=== PATIENT | male | born 2000 | race Hispanic/Latino ===

== ENCOUNTER 2019-04-11 16:55 | Emergency (ER) | payer SELFPAY ==
[2019-04-11 16:58] VITALS: BP 157/87; PULSE 87; RESP 17; TEMP 36.9; O2SAT 98
--- NOTE | 2019-04-11 17:04 | DI.RAD.S_ITS ---
PROCEDURE: XR CHEST 2V INDICATIONS: shortness of breath TECHNIQUE: 2 views of the chest were acquired. COMPARISON: None. FINDINGS: Surgical changes and devices: None. Lungs and pleura: Lungs are clear. No pleural effusions or pneumothorax. Mediastinum: Mediastinal contours are normal. Heart size is normal. Bones and chest wall: No suspicious bony abnormalities. Soft tissues appear unremarkable. IMPRESSION: 1. No acute cardiopulmonary disease. Dictated by: José Bernstein M.D. on 04/11/2019 at 17:15 Approved by: José Bernstein M.D. on 04/11/2019 at 17:15
[2019-04-11] MEDS: SODIUM CHLORIDE 0.9% 1,000 ML 1000 ML IV (18:10)
[2019-04-11] MEDS: ONDANSETRON 4 MG/2 ML INJ IV (18:10)
[2019-04-11 18:13] LABS: Add Manual Diff / Slide Review NO; Basophils Absolute Auto 0 /uL (0-100); Basophils Percent Auto 0.5 % (0-2); Eosinophils Absolute Auto 100 /uL (0-450); Eosinophils Percent Auto 1.6 % (2-4); Hematocrit 43.9 % (41-53); Hemoglobin 15.2 g/dL (13.5-17.5); Lymphocytes Absolute Auto 1200 /uL (1100-4500); Lymphocytes Percent Auto 23.4 % (25-40); Mean Corpuscular HGB Conc 34.8 % (30-36); Mean Corpuscular Hemoglobin 29.1 PG (26-34); Mean Corpuscular Volume 83.8 fL (80-100); Monocytes Absolute Auto 700 /uL (0-900); Monocytes Percent Auto 13.5 % (3-14); Neutrophils Absolute Auto 3200 /uL (1500-7000); Platelet Count 160 X10^3/uL (150-400); Red Blood Cell Count 5.24 X10^6/uL (4.5-5.9); White Blood Cell Count 5.3 X10^3/uL (4.5-11.0)
[2019-04-11 18:26] LABS: Alanine Aminotransferase 64 IU/L (<50); Albumin 4.4 g/dL (3.5-5.0); Albumin Globulin Ratio 1.5 (1.0-2.8); Alkaline Phosphatase 88 U/L (38-126); Amylase 60 U/L (30-110); Aspartate Aminotransferase 53 IU/L (17-59); Bilirubin Total 0.6 mg/dL (0.2-1.3); Blood Urea Nitrogen 12 mg/dL (9-20); Calcium 8.8 mg/dL (8.4-10.2); Carbon Dioxide 25 mmol/L (22-32); Chloride 106 mmol/L (98-107); Estimated Glomerular Filt Rate > 60.0 mL/min (>60); Glucose 106 mg/dL (70-100); HEMOLYSIS 27 (0-50); Lipase 91 U/L (23-300); Potassium 3.6 mmol/L (3.4-5.1); Sodium 143 mmol/L (137-145); Total Protein 7.4 g/dL (6.3-8.2)
[2019-04-11] MEDS: AMOXICILLIN 250 MG CAPSULE 500 MG PO (19:17)
--- NOTE | 2019-04-11 19:18 | ED.URI ---
HPI - URI/Sore Throat <NOA Nieto - Last Filed: 04/11/19 20:47> General Chief Complaint: Upper Respiratory Symptoms Stated Complaint: cold for 2 weeks Time Seen by Provider: 04/11/19 17:11 Source: patient Mode of arrival: Ambulatory Limitations: no limitations History of Present Illness HPI Narrative: The patient is a 18-year-old male who presents with his family for chief complaint of cold symptoms off and on for the past few weeks. He states he has a sore throat, cough, congestion, abdominal pain at times, has vomited 3 times a day for the past week. He has not followed up with primary care provider. He denies any dysuria urgency or frequency. He complains of diarrhea last week, but none currently. Last vomit was 1 hour prior to arrival. He denies any chest pain or shortness of breath. Related Data Previous Rx's Medication Instructions Recorded amoxicillin 500 mg PO BID #20 tab 04/11/19 Allergies Allergy/AdvReac Type Severity Reaction Status Date / Time No Known Allergies Allergy Uncoded 04/11/19 17:04 Review of Systems <NOA Nieto - Last Filed: 04/11/19 20:47> Review of Systems Narrative: GENERAL: See HPI HEENT: See HPI RESPIRATORY: Denies dyspnea, cough, wheezing, hemoptysis, sputum. CARDIOVASCULAR: Denies chest pain, palpitations, orthopnea, edema, GASTROINTESTINAL: See HPI : Denies dysuria, frequency, incontinence, hematuria, urinary retention. MUSCULOSKELETAL: denies weakness, joint pain, or bony pain SKIN: Denies rash, skin lesions, or other NEUROLOGIC: Denies weakness, headache, numbness, change in speech, confusion, seizures, incoordination. PSYCHIATRIC: No concerning psychosocial issues. 12 point review of systems is negative except for those stated above Patient History <NOA Nieto - Last Filed: 04/11/19 20:47> tobacco type: e-cigarettes and vaping alcohol intake frequency: holidays/special occasions only Exam <NOA Nieto - Last Filed: 04/11/19 20:47> Narrative Exam Narrative: GENERAL: This is a well-nourished, well-developed patient, in no acute distress HEAD: Atraumatic. Normocephalic. No temporal or scalp tenderness. EYES: Pupils equal round and reactive. Extraocular motions intact. No scleral icterus. No injection or drainage. ENT: Nose without bleeding, purulent drainage or septal hematoma. Throat without erythema, tonsillar hypertrophy or exudate. Uvula midline. Airway patent. Bilateral TMs pearly [place] NECK: Trachea midline. No JVD or lymphadenopathy. Supple, nontender, no meningeal signs. CARDIOVASCULAR: Regular rate and rhythm without murmurs, gallops, or rubs. RESPIRATORY: Clear to auscultation. Breath sounds equal bilaterally. No wheezes, rales, or rhonchi. No cough. No increased respiratory effort. No accessory muscle use. GASTROINTESTINAL: Abdomen soft, diffusely tender but soft to palpation, nondistended. No hepato-splenomegaly, or palpable masses. No guarding. Active bowel sounds all 4 quadrants EXTREMITIES: No clubbing, cyanosis, or edema. No joint tenderness, effusion, or edema noted. BACK: Nontender without deformity or crepitance. No flank tenderness. NEURO: AOx3. SKIN: No rash or erythema on visible skin Initial Vital Signs Initial Vital Signs: Vital Signs Temperature 98.5 F 04/11/19 16:58 Pulse Rate 87 04/11/19 16:58 Respiratory Rate 17 04/11/19 16:58 Blood Pressure 157/87 H 04/11/19 16:58 Pulse Oximetry 98 04/11/19 16:58 <Linnea Pereira DO - Last Filed: 04/12/19 04:23> Initial Vital Signs Initial Vital Signs: Vital Signs Temperature 98.5 F 04/11/19 16:58 Pulse Rate 87 04/11/19 16:58 Respiratory Rate 17 04/11/19 16:58 Blood Pressure 157/87 H 04/11/19 16:58 Pulse Oximetry 98 04/11/19 16:58 Course <NOA Nieto - Last Filed: 04/11/19 20:47> Orders Ordered: Discontinued Medications Amoxicillin (Trimox) 500 mg PO NOW ONE Stop: 04/11/19 19:05 Last Admin: 04/11/19 19:17 Dose: 500 mg Documented by: PRINCE Sodium Chloride (Normal Saline 0.9%) 1,000 mls @ 1,000 mls/hr IV BOLUS ONE Stop: 04/11/19 18:29 Last Infusion: 04/11/19 19:00 Dose: 0 mls/hr Documented by: Admin: 04/11/19 18:10 Dose: 1,000 mls/hr Documented by: PRINCE Ondansetron HCl (Zofran) 4 mg IV NOW ONE Stop: 04/11/19 17:31 Last Admin: 04/11/19 18:10 Dose: 4 mg Documented by: PRINCE Vital Signs Vital signs: Vital Signs - 8 hr 04/11/19 16:58 04/11/19 19:19 Temperature 98.5 F Pulse Rate 87 76 Respiratory Rate 17 18 Blood Pressure 157/87 H Blood Pressure [Left Arm] 103/53 L Pulse Oximetry 98 98 <Linnea Pereira DO - Last Filed: 04/12/19 04:23> Orders Ordered: Discontinued Medications Amoxicillin (Trimox) 500 mg PO NOW ONE Stop: 04/11/19 19:05 Last Admin: 04/11/19 19:17 Dose: 500 mg Documented by: PRINCE Sodium Chloride (Normal Saline 0.9%) 1,000 mls @ 1,000 mls/hr IV BOLUS ONE Stop: 04/11/19 18:29 Last Infusion: 04/11/19 19:00 Dose: 0 mls/hr Documented by: Admin: 04/11/19 18:10 Dose: 1,000 mls/hr Documented by: PRINCE Ondansetron HCl (Zofran) 4 mg IV NOW ONE Stop: 04/11/19 17:31 Last Admin: 04/11/19 18:10 Dose: 4 mg Documented by: PRINCE Vital Signs Vital signs: Vital Signs - 8 hr 04/11/19 16:58 04/11/19 19:19 Temperature 98.5 F Pulse Rate 87 76 Respiratory Rate 17 18 Blood Pressure 157/87 H Blood Pressure [Left Arm] 103/53 L Pulse Oximetry 98 98 MDM - URI/Sore Throat <NOA Nieto - Last Filed: 04/11/19 20:47> Lab Data Result diagrams: 04/11/19 18:05 04/11/19 18:05 Labs: Lab Results 04/11/19 04/11/19 Range/Units 18:05 18:05 WBC 5.3 (4.5-11.0) X10^3/uL RBC 5.24 (4.5-5.9) X10^6/uL Hgb 15.2 (13.5-17.5) g/dL Hct 43.9 (41-53) % MCV 83.8 (80-100) fL MCH 29.1 (26-34) PG MCHC 34.8 (30-36) % RDW 13.0 (11.6-14.8) % Plt Count 160 (150-400) X10^3/uL Neut % (Auto) 61.0 (50-75) % Lymph % (Auto) 23.4 L (25-40) % Gooding % (Auto) 13.5 (3-14) % Eos % (Auto) 1.6 L (2-4) % Baso % (Auto) 0.5 (0-2) % Neut # (Auto) 3200 (4006-1268) /uL Lymph # (Auto) 1200 (5162-0870) /uL Gooding # (Auto) 700 (0-900) /uL Eos # (Auto) 100 (0-450) /uL Baso # (Auto) 0 (0-100) /uL Sodium 143 (137-145) mmol/L Potassium 3.6 (3.4-5.1) mmol/L Chloride 106 (98-107) mmol/L Carbon Dioxide 25 (22-32) mmol/L BUN 12 (9-20) mg/dL Creatinine 0.60 L (0.66-1.25) mg/dL Estimated GFR > 60.0 (>60) mL/min BUN/Creatinine Ratio 20.0 (6-22) Glucose 106 H (70-100) mg/dL Calcium 8.8 (8.4-10.2) mg/dL Total Bilirubin 0.6 (0.2-1.3) mg/dL AST 53 (17-59) IU/L ALT 64 H (<50) IU/L Alkaline Phosphatase 88 (38-126) U/L Total Protein 7.4 (6.3-8.2) g/dL Albumin 4.4 (3.5-5.0) g/dL Globulin 3.0 (1.7-4.1) g/dL Albumin/Globulin Ratio 1.5 (1.0-2.8) Amylase 60 (30-110) U/L Lipase 91 (23-300) U/L Point of Care Testing Rapid Strep A Positive Imaging Data Chest x-ray: Radiologist's impression: [address] [address] XRay Report Signed Patient: Jalil Penn [facility]#: [id number] : 2000Acct:[id number] Age/Sex: 18 / MDate of Service: 04/11/19 Loc: ED Accession Number: [id number] Procedure: XR chest 2V Ordering Provider: Toby Killian MD PROCEDURE: XR CHEST 2V INDICATIONS: shortness of breath TECHNIQUE: 2 views of the chest were acquired. COMPARISON: None. FINDINGS: Surgical changes and devices: None. Lungs and pleura: Lungs are clear. No pleural effusions or pneumothorax. Mediastinum: Mediastinal contours are normal. Heart size is normal. Bones and chest wall: No suspicious bony abnormalities. Soft tissues appear unremarkable. IMPRESSION: 1. No acute cardiopulmonary disease. Dictated by: José Bernstein M.D. on 04/11/2019 at 17:15 Approved by: José Bernstein M.D. on 04/11/2019 at 17:15 [facility] Narrative Medical decision making narrative: The patient is a 18-year-old male who presents with a chief complaint of continued cold symptoms for the past several weeks. He states he is vomiting 2 to 3 times a day. He complains of sore throat. He is positive for strep, so I initiated treatment with amoxicillin in the emergency department. I did do basic lab working the oven fluids given his vomiting complaints, his lab work came back grossly normal. I discussed at length that he needs to follow up with primary care provider, come back to the emergency department for any acute concerns such as inability keep down fluids. He has no questions or concerns upon discharge and states understanding of return precautions as well as follow-up care. <Linnea Pereira DO - Last Filed: 04/12/19 04:23> Lab Data Labs: Lab Results 04/11/19 04/11/19 Range/Units 18:05 18:05 WBC 5.3 (4.5-11.0) X10^3/uL RBC 5.24 (4.5-5.9) X10^6/uL Hgb 15.2 (13.5-17.5) g/dL Hct 43.9 (41-53) % MCV 83.8 (80-100) fL MCH 29.1 (26-34) PG MCHC 34.8 (30-36) % RDW 13.0 (11.6-14.8) % Plt Count 160 (150-400) X10^3/uL Neut % (Auto) 61.0 (50-75) % Lymph % (Auto) 23.4 L (25-40) % Gooding % (Auto) 13.5 (3-14) % Eos % (Auto) 1.6 L (2-4) % Baso % (Auto) 0.5 (0-2) % Neut # (Auto) 3200 (5824-8973) /uL Lymph # (Auto) 1200 (3767-9142) /uL Gooding # (Auto) 700 (0-900) /uL Eos # (Auto) 100 (0-450) /uL Baso # (Auto) 0 (0-100) /uL Sodium 143 (137-145) mmol/L Potassium 3.6 (3.4-5.1) mmol/L Chloride 106 (98-107) mmol/L Carbon Dioxide 25 (22-32) mmol/L BUN 12 (9-20) mg/dL Creatinine 0.60 L (0.66-1.25) mg/dL Estimated GFR > 60.0 (>60) mL/min BUN/Creatinine Ratio 20.0 (6-22) Glucose 106 H (70-100) mg/dL Calcium 8.8 (8.4-10.2) mg/dL Total Bilirubin 0.6 (0.2-1.3) mg/dL AST 53 (17-59) IU/L ALT 64 H (<50) IU/L Alkaline Phosphatase 88 (38-126) U/L Total Protein 7.4 (6.3-8.2) g/dL Albumin 4.4 (3.5-5.0) g/dL Globulin 3.0 (1.7-4.1) g/dL Albumin/Globulin Ratio 1.5 (1.0-2.8) Amylase 60 (30-110) U/L Lipase 91 (23-300) U/L Point of Care Testing Rapid Strep A Positive Discharge Plan Departure Patient Disposition: Home Clinical Impression: Strep throat Discharge Date/Time: 04/11/19 19:28 Instructions: DI for Strep Throat Activity Restrictions/Additional Instructions: We found that you have strep throat today. I've sent a prescription for amoxicillin to [facility] in [place]. Please use [id number] medications as needed and able. Please follow-up with primary care provider. Please come back to the emergency department for any acute concerns Prescriptions: New amoxicillin 500 mg tablet 500 mg PO BID Qty: 20 RF: 0 Referrals: [facility] [Outside]
[2019-04-11 19:19] VITALS: BP 103/53; PULSE 76; RESP 18; O2SAT 98
== END 2019-04-11 19:28 | disposition home or self-care (01) ==
PROVIDERS: Emergency Provider Nurse Practitioner Family
DX: J02.0 Streptococcal pharyngitis (principal); R06.02 Shortness of breath; R11.10 Vomiting, unspecified
CPT/HCPCS: 36415; 71046; 80053; 82150; 83690; 85025; 87880; 96361; 96374; 99283; 99284; J2405

== ENCOUNTER 2019-10-19 07:20 | Emergency (ER) | payer OTHER, MEDICAID, SELFPAY ==
[2019-10-19 07:25] VITALS: BP 134/88; PULSE 119; RESP 17; TEMP 37.8; O2SAT 97; BMI 31.4
--- NOTE | 2019-10-19 07:35 | DI.RAD.S_ITS ---
PROCEDURE: XR CHEST 1V INDICATIONS: Flu like symptoms TECHNIQUE: One view of the chest was acquired. COMPARISON: [facility], CR, XR CHEST 2V, 04/11/2019, 17:00. FINDINGS: Surgical changes and devices: None. Lungs and pleura: Lungs are clear. No pleural effusions or pneumothorax. Mediastinum: Mediastinal contours appear normal. Heart size is normal. Bones and chest wall: No suspicious bony lesions. Overlying soft tissues appear unremarkable. IMPRESSION: No acute disease Dictated by: Hoang Gibbs M.D. on 10/19/2019 at 8:43 Approved by: Hoang Gibbs M.D. on 10/19/2019 at 8:44
[2019-10-19 07:45] VITALS: TEMP 37.8
[2019-10-19] MEDS: ACETAMINOPHEN 325 MG TABLET 975 MG PO (07:45)
--- NOTE | 2019-10-19 07:56 | ED_ITS ---
HPI - URI/Sore Throat General Chief Complaint: Upper Respiratory Symptoms Stated Complaint: fever since last night/sore throat cough Time Seen by Provider: 10/19/19 07:27 Source: patient Mode of arrival: Ambulatory Limitations: no limitations History of Present Illness HPI Narrative: CC: Fever, productive cough, sore throat, mother tested positive for [place] it last night HPI: The patient is a 19-year-old male who presents to the emergency department with a fever that started last night associated with diffuse body aches, headache, cough productive of green sputum without wheezing, mild shortness of breath at night with a sore throat. The patient's mother was seen in the emergency department last night and tested positive for Covid 19. He has been tachycardic with racing of his heart and dizziness. He has complained of fever chills and sweats. He denies a history of diabetes mellitus hypertension asthma congenital heart disease and heart murmur. The patient does not smoke cigarettes chew tobacco dr ink alcohol but periodically smokes marijuana. 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 Related Data Previous Rx's Medication Instructions Recorded amoxicillin 500 mg PO TID #30 cap 10/19/19 ibuprofen 600 mg tablet 600 mg PO QID PRN #20 tab 10/23/19 Allergies Allergy/AdvReac Type Severity Reaction Status Date / Time No Known Drug Allergies Allergy Verified 10/19/19 07:36 Review of Systems Review of Systems Narrative: REVIEW OF SYSTEMS: CONSTITUTIONAL: The patient complains of of fever with chills and sweats. His maximum temperature has been to 100.1. NEUROLOGICAL: He complains of a generalized headache that is 7 to 6/10 in intensity. He denies any numbness tingling paresthesias anesthesia is paresis or paralysis. EENT: He has had a sore throat with mild nasal congestion no dysphasia no change in vision. CARDIO-PULMONARY: He complains of shortness of breath at nighttime primarily none with exertion has had a productive cough. Sputum has been green without hemoptysis. He denies any wheezing or chest pain. He has had dizziness with palpitations and racing of his heart periodically. GASTROINTESTINAL: He denies any abdominal pain or cramps but has had nausea without diarrhea or melena. GENITAL URINARY: He denies any urinary symptoms. MUSCULOSKELETAL/ RHEUMATOLOGICAL: The patient has upper thoracic back ache and diffuse body aches. DERMATOLOGICAL: He denies any rash bruising Patient History Social History Smoking Status: Former smoker Smoking Status: Former smoker tobacco type: e-cigarettes and vaping alcohol intake frequency: holidays/special occasions only Substance Use Type: marijuana Exam Narrative Exam Narrative: PHYSICAL EXAM: CONSTITUTIONAL: Awake, Alert, Oriented, Coherent, Cooperative in NAD. Does not appear toxic or ill. HEAD: AT/NC EENT: PERRL, FROM of eyes, no discharge, no conjunctivitis. NOSE:No epistaxis or nasal drainage MOUTH:Oral mucosa is moist and pink, posterior pharynx is mildly erythematous without any exudate. NECK: Supple, no obvious JVD, Trachea is midline without stridor, no palpable LN. SPINE: Palpationof the cervical, Lumbar or Sacral spine reveals no gross deformity or tenderness. The patient's mid upper thoracic spine is tender to palpation. No CVA tenderness. THORAX: No deformity, retractions. Chest wall is tender to palpation along the right costal sternal margin and lower ribs as well as if he sternum which is reproducible. LUNGS: Clear, symmetrical breath sounds without respiratory distress. HEART: Tachycardic regular rhythm no murmur. ABDOMEN: Soft, non-tender, without guarding, rebound, rigidity or palpable mass. EXTREMITIES: No edema, deformity, tenderness or cyanosis. SKIN: No rash, bruising, petechiae or purpura. NEURO: Awake, alert, oriented, conversive, cranial nerves II-XII are symmetrical , moves all 4 extremities and is ambulatory. MENTAL HEALTH: Does not appear anxious or depressed. Initial Vital Signs Initial Vital Signs: Vital Signs Temperature 100.0 F H 10/19/19 07:25 Pulse Rate 119 H 10/19/19 07:25 Respiratory Rate 17 10/19/19 07:25 Blood Pressure 134/88 10/19/19 07:25 Pulse Oximetry 97 10/19/19 07:25 Course Orders Ordered: Discontinued Medications Acetaminophen (Tylenol) 975 mg PO NOW ONE Stop: 10/19/19 07:35 Last Admin: 10/19/19 07:45 Dose: 975 mg Documented by: CALDERON Amoxicillin (Trimox) 500 mg PO NOW ONE Stop: 10/19/19 09:03 Last Admin: 10/19/19 09:12 Dose: 500 mg Documented by: GUIDO Vital Signs Vital signs: Vital Signs - 8 hr 10/19/19 07:25 10/19/19 07:45 Temperature 100.0 F H 100.0 F H Pulse Rate 119 H Respiratory Rate 17 Blood Pressure 134/88 Pulse Oximetry 97 MDM - URI/Sore Throat Lab Data Labs: Lab Results 10/19/19 10/19/19 Range/Units 07:47 07:47 COVID-19 PCR Detected A (Not Detected) Influenza A (RT-PCR) Flu a negative (NEGATIVE) Influenza B (RT-PCR) Flu b negative (NEGATIVE) Group A Strep (PCR) Positive H Discharge Plan Departure Patient Disposition: Home Clinical Impression: Productive cough, Acute streptococcal pharyngitis Fever Qualifiers: Fever type: unspecified Qualified Code(s): R50.9 - Fever, unspecified Discharge Date/Time: 10/19/19 09:57 Instructions: DI for Strep Throat, DI for Acute Bronchitis, DI for COVID-19 (Suspected or Confirmed ) Activity Restrictions/Additional Instructions: 1. Since you have been exposed to COVID-19 from a family member, with your mother being positive and you having mild shortness of breath cough pharyngitis even though you have strep throat, you must be presumed positive until your Covid Test returns negative. You must self quarantine yourself for the next 14 days until your test returns and is negative. 2. Take the amoxicillin 500 mg 3 times a day until gone for your strep pharyngitis. 3. For pain and discomfort body aches you can take Tylenol/acetaminophen 500 mg every 4 hours or ibuprofen 600 mg every 6 hours. 4. You must drink between 2 and 3 L of fluid per day to keep yourself well hydrated. 5. If you develop worsening symptoms shortness of breath or chest pain you need to return to the emergency department or follow-up with your primary care physician Prescriptions: New amoxicillin 500 mg capsule 500 mg PO TID Qty: 30 RF: 0 No Action ibuprofen 600 mg tablet 600 mg PO QID PRN (Reason: fever or pain) Qty: 20 RF: 0 Stand Alone Forms: Work Release Note
[2019-10-19 08:00] VITALS: PULSE 93; O2SAT 98
--- NOTE | 2019-10-19 08:01 | PC.NURSE ---
Patient was given reading material for Covid-19 by his request.
[2019-10-19 08:14] LABS: Strep Grp A by PCR Rapid Positive
[2019-10-19 08:35] LABS: Influenza A - CEPHEID Flu A NEGATIVE (NEGATIVE); Influenza B - CEPHEID Flu B NEGATIVE (NEGATIVE)
[2019-10-19 09:00] VITALS: TEMP 37.4
[2019-10-19 09:01] VITALS: PULSE 77; RESP 17; TEMP 37.4; O2SAT 99
[2019-10-19] MEDS: AMOXICILLIN 250 MG CAPSULE 500 MG PO (09:12)
[2019-10-19 09:54] VITALS: BP 131/58; PULSE 75; RESP 14; O2SAT 98
[2019-10-21 13:36] LABS: COVID19 Sendout Detected (Not Detected)
== END 2019-10-19 09:57 | disposition home or self-care (01) ==
PROVIDERS: Emergency Provider Emergency Medicine
DX: U07.1 COVID-19 (principal); J02.0 Streptococcal pharyngitis; R05 Cough; R50.9 Fever, unspecified; R00.0 Tachycardia, unspecified
CPT/HCPCS: 71045; 87502; 87635; 87651; 99283; 99284

== ENCOUNTER 2019-10-24 17:00 | Emergency (ER) | payer OTHER, MEDICAID, SELFPAY ==
[2019-10-24 17:21] VITALS: BP 134/60; PULSE 99; RESP 20; TEMP 38.1; O2SAT 95; BMI 34.3
--- NOTE | 2019-10-24 17:29 | DI.CT.S_ITS ---
PROCEDURE: CT ABDOMEN PELVIS W CON INDICATIONS: LLQ and RLQ pain, fever TECHNIQUE: After the administration of intravenous contrast, 5 mm thick sections acquired from the diaphragm to the symphysis. 5 mm coronal and sagittal reformats were acquired. For radiation dose reduction, the following was used: automated exposure control, adjustment of mA and/or kV according to patient size. COMPARISON: None. FINDINGS: Image quality: Excellent. ABDOMEN: Lung bases: Small rounded infiltrates in posterior aspect of bilateral lower lobes are seen more prominent on the right side. Heart size is normal. Solid organs: Liver is normal in size and enhancement. Hepatic steatosis is seen. Gallbladder is within normal limits. Biliary system is non dilated. Pancreas enhances normally. Spleen is normal in size and enhancement. No adrenal nodules. Kidneys demonstrate normal size and enhancement, without hydronephrosis. Peritoneum and bowel: There is no bowel obstruction. Appendix is visualized and is within normal limits. Mild wall thickening involving the ascending colon transverse and descending colon is noted. No significant pericolonic fat stranding. No free fluid or free air. Nodes and vessels: No retroperitoneal or mesenteric adenopathy by size criteria. Aorta and inferior vena cava are normal in size. Miscellaneous: No ventral hernias. PELVIS: Genitourinary: Bladder wall thickness is normal. Miscellaneous: No inguinal hernias or adenopathy. Bones: No suspicious bony lesions. No vertebral body compression fractures. IMPRESSION: 1. Mild colonic wall thickening concerning for infectious or inflammatory colitis. No bowel obstruction. Normal appendix. No free fluid or free air. 2. Hepatic steatosis. 3. Ill-defined rounded airspace opacities in posterior aspect of bilateral lower lobes concerning for bilateral lower lobe infiltrates more prominent on the right side. Dictated by: Elliott Espinosa M.D. on 10/24/2019 at 18:33 Approved by: Elliott Espinosa M.D. on 10/24/2019 at 18:35
--- NOTE | 2019-10-24 17:54 | ED.ABDPAIN ---
HPI - Abdominal Pain <CARA Moore - Last Filed: 10/24/19 21:01> General Chief Complaint: Abdominal Pain Stated Complaint: COVID Postive, pain lower back, hard to walk Time Seen by Provider: 10/24/19 17:16 Source: patient Mode of arrival: Ambulatory Limitations: no limitations History of Present Illness HPI narrative: 19-year-old male who recently test positive for COVID-19 on 10/19/2019, presents to the emergency department for right lower quadrant and left lower quadrant pain starting the past 24 hours. Patient also complains of mid back pain, denies any dysuria or flank pain. Patient also reports having a dry cough which has improved over the past few days. Patient states he has had a fever for the past few days but has been positive for COVID-19 and strep A. Patient has been taking ibuprofen and amoxicillin. Patient denies any nausea, vomiting, diarrhea, chest pain, worsening shortness of breath, dizziness, headache, or any other concerns. Related Data Previous Rx's Medication Instructions Recorded amoxicillin 500 mg PO TID #30 cap 10/19/19 ibuprofen 600 mg tablet 600 mg PO QID PRN #20 tab 10/23/19 Allergies Allergy/AdvReac Type Severity Reaction Status Date / Time No Known Drug Allergies Allergy Verified 10/19/19 07:36 Review of Systems <CARA Moore - Last Filed: 10/24/19 21:01> Review of Systems Narrative: REVIEW OF SYSTEMS: GENERAL: Denies fever, chills. HENT: No head trauma. CARDIOVASCULAR: No chest pain. RESPIRATORY: Reports dry cough, see HPI. GASTROINTESTINAL: Complains of abdominal pain, see HPI GENITOURINARY: No flank pain or dysuria. MUSCULOSKELETAL: No pain, weakness, or trauma. INTEGUMENTARY: No rash. NEURO: No headaches. PSYCH: No behavior or mood changes. Patient History <CARA Moore - Last Filed: 10/24/19 21:01> Medical History No significant medical problems (Acute) Social History Smoking Status: Former smoker Smoking Status: Former smoker tobacco type: e-cigarettes and vaping alcohol intake frequency: holidays/special occasions only Substance Use Type: marijuana Exam <CARA Moore - Last Filed: 10/24/19 21:01> Initial Vital Signs Initial Vital Signs: Vital Signs Temperature 100.6 F H 10/24/19 17:21 Pulse Rate 99 H 10/24/19 17:21 Respiratory Rate 20 10/24/19 17:21 Blood Pressure 134/60 10/24/19 17:21 Pulse Oximetry 95 10/24/19 17:21 PHYSICAL EXAMINATION: GENERAL: Well groomed, alert, and cooperative. Answers questions promptly and appropriately. Vital signs noted. HENT: Normocephalic, atraumatic. Hearing intact. Oral mucosa is pink and moist. EYES: Conjunctiva pink, sclera white, no periorbital swelling. CARDIOVASCULAR: S1 and S2 sounds normal. Slightly increased rate and rhythm, no murmurs, clicks, or bruits. No pedal edema. RESPIRATORY: Normal respiratory rate, trachea midline, airway patent. No stridor, nasal flaring or accessory muscle use. Lungs are clear in all beth without wheeze, rhonchi, or crackles. GASTROINTESTINAL: Bowel sounds normoactive. Abdomen is soft, tenderness noted to right and left lower quadrants, right lower quadrant is significantly more tender with rebound tenderness. No organomegaly, no palpable masses. GENITALURINARY: No flank tenderness. MUSCULOSKELETAL: Normal gait and coordination. Equal tone and mass bilaterally. EXTREMITIES: CMS intact. SKIN: Warm, dry, soft, appropriate color for ethnicity. No lesions, rashes, or wounds to visualized areas. NEURO: Alert and Oriented X 3. Good coordination. No ataxia, or sensory deficits, or cognitive issues. PSYCH: Appropriate affect and mood. <Andrew Hendrix DO - Last Filed: 10/25/19 04:23> Initial Vital Signs Initial Vital Signs: Vital Signs Temperature 100.6 F H 10/24/19 17:21 Pulse Rate 99 H 10/24/19 17:21 Respiratory Rate 20 10/24/19 17:21 Blood Pressure 134/60 10/24/19 17:21 Pulse Oximetry 95 10/24/19 17:21 Course <CARA Moore - Last Filed: 10/24/19 21:01> Course Course Narrative: Patient re-evaluated after medications, states he is feeling much better. Orders Ordered: Discontinued Medications Sodium Chloride (Normal Saline 0.9%) 1,000 mls @ 1,000 mls/hr IV BOLUS ONE Stop: 10/24/19 18:28 Last Infusion: 10/24/19 20:40 Dose: 0 mls/hr Documented by: Admin: 10/24/19 18:42 Dose: 1,000 mls/hr Documented by: LUIZ Ketorolac Tromethamine (Toradol) 30 mg IV NOW ONE Stop: 10/24/19 17:32 Last Admin: 10/24/19 18:41 Dose: 30 mg Documented by: LUIZ Vital Signs Vital signs: Vital Signs - 8 hr 10/24/19 17:21 10/24/19 18:45 10/24/19 19:45 Temperature 100.6 F H 99.1 F Pulse Rate 99 H 70 71 Respiratory Rate 20 16 18 Blood Pressure 134/60 Blood Pressure [Left Arm] 114/75 119/81 Pulse Oximetry 95 99 99 10/24/19 20:00 Temperature Pulse Rate 69 Respiratory Rate Blood Pressure Blood Pressure [Left Arm] 144/67 H Pulse Oximetry 98 <Andrew Hendrix DO - Last Filed: 10/25/19 04:23> Orders Ordered: Discontinued Medications Sodium Chloride (Normal Saline 0.9%) 1,000 mls @ 1,000 mls/hr IV BOLUS ONE Stop: 10/24/19 18:28 Last Infusion: 10/24/19 20:40 Dose: 0 mls/hr Documented by: Admin: 10/24/19 18:42 Dose: 1,000 mls/hr Documented by: LUIZ Ketorolac Tromethamine (Toradol) 30 mg IV NOW ONE Stop: 10/24/19 17:32 Last Admin: 10/24/19 18:41 Dose: 30 mg Documented by: LUIZ Vital Signs Vital signs: Vital Signs - 8 hr 10/24/19 17:21 10/24/19 18:45 10/24/19 19:45 Temperature 100.6 F H 99.1 F Pulse Rate 99 H 70 71 Respiratory Rate 20 16 18 Blood Pressure 134/60 Blood Pressure [Left Arm] 114/75 119/81 Pulse Oximetry 95 99 99 10/24/19 20:00 Temperature Pulse Rate 69 Respiratory Rate Blood Pressure Blood Pressure [Left Arm] 144/67 H Pulse Oximetry 98 MDM - Abdominal Pain <Vidhya SilvermanCARA - Last Filed: 10/24/19 21:01> Medical Records Attestation: I reviewed the patient's medical records. Lab Data Attestation: I reviewed the patient's lab results. Result diagrams: 10/24/19 18:10 10/24/19 18:10 Labs: Lab Results 10/24/19 10/24/19 Range/Units 18:10 18:10 WBC 5.0 (4.5-11.0) X10^3/uL RBC 5.28 (4.5-5.9) X10^6/uL Hgb 15.6 (13.5-17.5) g/dL Hct 43.7 (41-53) % MCV 82.7 (80-100) fL MCH 29.5 (26-34) PG MCHC 35.7 (30-36) % RDW 13.0 (11.6-14.8) % Plt Count 123 L (150-400) X10^3/uL Neut % (Auto) 57.0 (50-75) % Lymph % (Auto) 30.6 (25-40) % [place] % (Auto) 11.9 (3-14) % Eos % (Auto) 0.2 L (2-4) % Baso % (Auto) 0.3 (0-2) % Neut # (Auto) 2800 (2629-3103) /uL Lymph # (Auto) 1500 (7923-4003) /uL [place] # (Auto) 600 (0-900) /uL Eos # (Auto) 0 (0-450) /uL Baso # (Auto) 0 (0-100) /uL Sodium 137 (137-145) mmol/L Potassium 4.1 (3.4-5.1) mmol/L Chloride 105 (98-107) mmol/L Carbon Dioxide 24 (22-32) mmol/L BUN 12 (9-20) mg/dL Creatinine 0.62 L (0.66-1.25) mg/dL Estimated GFR > 60.0 (>60) mL/min BUN/Creatinine Ratio 19.4 (6-22) Glucose 107 H (70-100) mg/dL Calcium 8.8 (8.4-10.2) mg/dL Total Bilirubin 0.5 (0.2-1.3) mg/dL AST 41 (17-59) IU/L ALT 42 (<50) IU/L Alkaline Phosphatase 73 (38-126) U/L Total Protein 7.1 (6.3-8.2) g/dL Albumin 4.0 (3.5-5.0) g/dL Globulin 3.1 (1.7-4.1) g/dL Albumin/Globulin Ratio 1.3 (1.0-2.8) Lipase 89 (23-300) U/L Point of care testing: Urine Dip Bedside Urine Glucose Negative Bedside Urine Bilirubin - Negative Bedside Urine Ketone +/- 5 Urine Specific [place] 1.010 Bedside Urine Occult Blood - Negative Bedside Urine pH 5.5 Bedside Urine Protein +/- 15 Bedside Urine Urobilinogen - Negative Bedside Urine Nitrite - Negative Bedside Urine Leukocytes - Negative Esterase Imaging Data CT scan - abdomen/pelvis: Radiologist's Impression: [address] [address] [address] Scan Report Signed Patient: Jalil Hathaway [facility]#: [id number] : 2000Acct:[id number] Age/Sex: 19 / MDate of Service: 10/24/19 Loc: ED Accession Number: [id number] Procedure: CT abdomen pelvis w con Ordering Provider: Vidhya Silverman PROCEDURE: CT ABDOMEN PELVIS W CON INDICATIONS: LLQ and RLQ pain, fever TECHNIQUE: After the administration of intravenous contrast, 5 mm thick sections acquired from the diaphragm to the symphysis. 5 mm coronal and sagittal reformats were acquired. For radiation dose reduction, the following was used: automated exposure control, adjustment of mA and/or kV according to patient size. COMPARISON: None. FINDINGS: Image quality: Excellent. ABDOMEN: Lung bases: Small rounded infiltrates in posterior aspect of bilateral lower lobes are seen more prominent on the right side. Heart size is normal. Solid organs: Liver is normal in size and enhancement. Hepatic steatosis is seen. Gallbladder is within normal limits. Biliary system is non dilated. Pancreas enhances normally. Spleen is normal in size and enhancement. No adrenal nodules. Kidneys demonstrate normal size and enhancement, without hydronephrosis. Peritoneum and bowel: There is no bowel obstruction. Appendix is visualized and is within normal limits. Mild wall thickening involving the ascending colon transverse and descending colon is noted. No significant pericolonic fat stranding. No free fluid or free air. Nodes and vessels: No retroperitoneal or mesenteric adenopathy by size criteria. Aorta and inferior vena cava are normal in size. Miscellaneous: No ventral hernias. PELVIS: Genitourinary: Bladder wall thickness is normal. Miscellaneous: No inguinal hernias or adenopathy. Bones: No suspicious bony lesions. No vertebral body compression fractures. IMPRESSION: 1. Mild colonic wall thickening concerning for infectious or inflammatory colitis. No bowel obstruction. Normal appendix. No free fluid or free air. 2. Hepatic steatosis. 3. Ill-defined rounded airspace opacities in posterior aspect of bilateral lower lobes concerning for bilateral lower lobe infiltrates more prominent on the right side. Dictated by: Elliott Espinosa M.D. on 10/24/2019 at 18:33 Approved by: Elliott Espinosa M.D. on 10/24/2019 at 18:35 MDM Narrative Medical decision making narrative: 19-year-old male presenting to the emergency department who tested positive for COVID-19 and strep pharyngitis 5 days ago, currently taking amoxicillin presents emergency department for lower bilateral abdominal pain. Patient was tender on to examination to right lower quadrant with a fever 100.6F, CT ordered to evaluate for appendicitis. CT imaging shows colitis, I suspect this most likely related to her antibiotic therapy. Less likely bacterial infection due to lack of diarrhea or vomiting. However, patient does have a co-infection with COVID-19 and pulmonary infiltrates were seen on examination which correlates with virus etiology. Patient was not short of breath, oxygen saturations were within normal limits, he was hemodynamically stable, clear lung sounds and no cough was observed examination the less concern for hypoxia. Patient was encouraged to continue with antibiotics over the next few days and less abdominal pain worsens. Strict return precautions given for new or worsening symptoms such as abdominal pain, uncontrollable vomiting, shortness of breath, continued high fevers, or any other concerns. Patient agreed to plan of care verbalized understanding. <Andrew Hendrix, - Last Filed: 10/25/19 04:23> Lab Data Labs: Lab Results 10/24/19 10/24/19 Range/Units 18:10 18:10 WBC 5.0 (4.5-11.0) X10^3/uL RBC 5.28 (4.5-5.9) X10^6/uL Hgb 15.6 (13.5-17.5) g/dL Hct 43.7 (41-53) % MCV 82.7 (80-100) fL MCH 29.5 (26-34) PG MCHC 35.7 (30-36) % RDW 13.0 (11.6-14.8) % Plt Count 123 L (150-400) X10^3/uL Neut % (Auto) 57.0 (50-75) % Lymph % (Auto) 30.6 (25-40) % [place] % (Auto) 11.9 (3-14) % Eos % (Auto) 0.2 L (2-4) % Baso % (Auto) 0.3 (0-2) % Neut # (Auto) 2800 (1353-1927) /uL Lymph # (Auto) 1500 (7150-7199) /uL [place] # (Auto) 600 (0-900) /uL Eos # (Auto) 0 (0-450) /uL Baso # (Auto) 0 (0-100) /uL Sodium 137 (137-145) mmol/L Potassium 4.1 (3.4-5.1) mmol/L Chloride 105 (98-107) mmol/L Carbon Dioxide 24 (22-32) mmol/L BUN 12 (9-20) mg/dL Creatinine 0.62 L (0.66-1.25) mg/dL Estimated GFR > 60.0 (>60) mL/min BUN/Creatinine Ratio 19.4 (6-22) Glucose 107 H (70-100) mg/dL Calcium 8.8 (8.4-10.2) mg/dL Total Bilirubin 0.5 (0.2-1.3) mg/dL AST 41 (17-59) IU/L ALT 42 (<50) IU/L Alkaline Phosphatase 73 (38-126) U/L Total Protein 7.1 (6.3-8.2) g/dL Albumin 4.0 (3.5-5.0) g/dL Globulin 3.1 (1.7-4.1) g/dL Albumin/Globulin Ratio 1.3 (1.0-2.8) Lipase 89 (23-300) U/L Point of care testing: Urine Dip Bedside Urine Glucose Negative Bedside Urine Bilirubin - Negative Bedside Urine Ketone +/- 5 Urine Specific [place] 1.010 Bedside Urine Occult Blood - Negative Bedside Urine pH 5.5 Bedside Urine Protein +/- 15 Bedside Urine Urobilinogen - Negative Bedside Urine Nitrite - Negative Bedside Urine Leukocytes - Negative Esterase Discharge Plan Departure Patient Disposition: Home Clinical Impression: COVID-19, Colitis Discharge Date/Time: 10/24/19 20:41 Instructions: DI for Colitis, DI for COVID-19 (Suspected or Confirmed ), Coronavirus Disease 2019, Can COVID-19 be prevented? Activity Restrictions/Additional Instructions: Thank you for entrusting me with your care today. As discussed, your CT shows inflammatory changes are most likely related to colitis, I suspect this is caused by the antibiotics that you have been taking. I do suggest continuing to take the antibiotics until the course is complete unless he developed significantly worse abdominal pain, discontinue them. Please drink lots of water, I recommend a bland diet such as the BRAT diet (bananas, rice, apples, toast) over the next few days. Please try to avoid foods with dairy and high in fat such as a hamburger as this will make your symptoms worse. Return emergency department for any new or worsening symptoms such as shortness of breath, high fevers, uncontrollable vomiting, dizziness, severe abdominal pain, blood in her stool, or any other concerns. Prescriptions: No Action ibuprofen 600 mg tablet 600 mg PO QID PRN (Reason: fever or pain) Qty: 20 RF: 0 amoxicillin 500 mg capsule 500 mg PO TID Qty: 30 RF: 0 <Andrew Hendrix DO - Last Filed: 10/25/19 04:23> Cosign ED Attending Deejayature Attestation: I was immediately available in the department for consultation. This documentation has been reviewed and I agree with assessment and plan. Supervised by Andrew Hendrix DO
[2019-10-24 18:29] LABS: Add Manual Diff / Slide Review NO; Basophils Absolute Auto 0 /uL (0-100); Basophils Percent Auto 0.3 % (0-2); Eosinophils Absolute Auto 0 /uL (0-450); Eosinophils Percent Auto 0.2 % (2-4); Hematocrit 43.7 % (41-53); Hemoglobin 15.6 g/dL (13.5-17.5); Lymphocytes Absolute Auto 1500 /uL (1100-4500); Lymphocytes Percent Auto 30.6 % (25-40); Mean Corpuscular HGB Conc 35.7 % (30-36); Mean Corpuscular Hemoglobin 29.5 PG (26-34); Mean Corpuscular Volume 82.7 fL (80-100); Monocytes Absolute Auto 600 /uL (0-900); Monocytes Percent Auto 11.9 % (3-14); Neutrophils Absolute Auto 2800 /uL (1500-7000); Platelet Count 123 X10^3/uL (150-400); Red Blood Cell Count 5.28 X10^6/uL (4.5-5.9)
[2019-10-24 18:40] LABS: Alanine Aminotransferase 42 IU/L (<50); Albumin Globulin Ratio 1.3 (1.0-2.8); Alkaline Phosphatase 73 U/L (38-126); Aspartate Aminotransferase 41 IU/L (17-59); BUN Creatinine Ratio 19.4 (6-22); Bilirubin Total 0.5 mg/dL (0.2-1.3); Blood Urea Nitrogen 12 mg/dL (9-20); Calcium 8.8 mg/dL (8.4-10.2); Carbon Dioxide 24 mmol/L (22-32); Chloride 105 mmol/L (98-107); Estimated Glomerular Filt Rate > 60.0 mL/min (>60); Globulin 3.1 g/dL (1.7-4.1); Glucose 107 mg/dL (70-100); HEMOLYSIS 29 (0-50); Lipase 89 U/L (23-300); Potassium 4.1 mmol/L (3.4-5.1); Sodium 137 mmol/L (137-145); Total Protein 7.1 g/dL (6.3-8.2)
[2019-10-24] MEDS: KETOROLAC 60 MG/2 ML VIAL 30 MG IV (18:41)
[2019-10-24] MEDS: SODIUM CHLORIDE 0.9% 1,000 ML 1000 ML IV (18:42)
[2019-10-24 18:45] VITALS: BP 114/75; PULSE 70; RESP 16; O2SAT 99
[2019-10-24 19:45] VITALS: BP 119/81; PULSE 71; RESP 18; TEMP 37.3; O2SAT 99
[2019-10-24 20:00] VITALS: BP 144/67; PULSE 69; O2SAT 98
== END 2019-10-24 20:41 | disposition home or self-care (01) ==
PROVIDERS: Emergency Provider Nurse Practitioner
DX: U07.1 COVID-19 (principal); K52.9 Noninfective gastroenteritis and colitis, unspecified; R10.32 Left lower quadrant pain; R10.31 Right lower quadrant pain; R50.9 Fever, unspecified
CPT/HCPCS: 36415; 74177; 80053; 81003; 83690; 85025; 96361; 96374; 99284; J1885; Q9967

== ENCOUNTER → 2019-11-05 13:16 | Outpatient (CLI) | payer OTHER, MEDICAID, SELFPAY ==
[2019-11-08 06:36] LABS: COVID19 Sendout Not Detected (Not Detected)
== END ==
PROVIDERS: Visit Provider Physician Assistant
DX: Z11.59 Encounter for screening for other viral diseases (principal)
CPT/HCPCS: 87635

== ENCOUNTER 2023-03-17 12:03 | Emergency (ER) | payer OTHER, MEDICAID, SELFPAY ==
[2023-03-17] VITALS (23 sets, daily range): BP systolic 111–151; BP diastolic 57–78; PULSE 47–73; RESP 12–25; TEMP 35.8–36.4; O2SAT 99–100; BMI 21.9
--- NOTE | 2023-03-17 12:13 | DI.RAD.S_ITS ---
PROCEDURE: XR CHEST 1V INDICATIONS: chest pain TECHNIQUE: One view of the chest was acquired. COMPARISON: [facility], CR, XR CHEST 1V, 10/19/2019, 8:23. FINDINGS: Surgical changes and devices: None. Lungs and pleura: Lungs are clear. No pleural effusions or pneumothorax. Mediastinum: Mediastinal contours appear normal. Heart size is normal. Bones and chest wall: No suspicious bony lesions. Overlying soft tissues appear unremarkable. IMPRESSION: No acute cardiopulmonary findings Approved by: Jae Dotson M.D. on 03/17/2023 at 12:03
[2023-03-17 12:19] LABS: Add Manual Diff / Slide Review NO; Basophils Absolute Auto 0 /uL (0-100); Basophils Percent Auto 0.5 % (0-2); Eosinophils Absolute Auto 100 /uL (0-450); Eosinophils Percent Auto 1.3 % (2-4); Hematocrit 42.9 % (41-53); Hemoglobin 14.7 g/dL (13.5-17.5); Lymphocytes Absolute Auto 3900 /uL (1100-4500); Lymphocytes Percent Auto 41.5 % (25-40); Mean Corpuscular HGB Conc 34.3 % (30-36); Mean Corpuscular Hemoglobin 29.2 PG (26-34); Mean Corpuscular Volume 85.2 fL (80-100); Monocytes Absolute Auto 500 /uL (0-900); Monocytes Percent Auto 5.8 % (3-14); Neutrophils Absolute Auto 4800 /uL (1500-7000); Neutrophils Percent Auto 50.9 % (50-75); Platelet Count 224 X10^3/uL (150-400); Red Blood Cell Count 5.03 X10^6/uL (4.5-5.9); Red Cell Distribution Width 13.1 % (11.6-14.8); White Blood Cell Count 9.4 X10^3/uL (4.5-11.0)
[2023-03-17 12:29] LABS: Prothrombin Time 11.9 SECONDS (10.1-12.7)
[2023-03-17 12:32] LABS: PTT Partial Thromboplastin Tim 24 SECONDS (26-36)
[2023-03-17 12:37] LABS: Alanine Aminotransferase 17 IU/L (<50); Albumin 4.7 g/dL (3.5-5.0); Albumin Globulin Ratio 1.7 (1.0-2.8); Alkaline Phosphatase 80 U/L (38-126); Aspartate Aminotransferase 24 IU/L (17-59); BUN Creatinine Ratio 26.2 (6-22); Bilirubin Total 0.8 mg/dL (0.2-1.3); Blood Urea Nitrogen 16 mg/dL (9-20); Calcium 9.6 mg/dL (8.4-10.2); Carbon Dioxide 21 mmol/L (22-32); Chloride 106 mmol/L (98-107); Creatine Kinase 102 U/L (55-170); Estimated Glomerular Filt Rate > 60 mL/min (>60); Globulin 2.8 g/dL (1.7-4.1); Glucose 164 mg/dL (70-100); HEMOLYSIS < 15 (0-50); Lipase 89 U/L (23-300); Magnesium 1.9 mg/dL (1.6-2.3); Potassium 3.3 mmol/L (3.4-5.1); Sodium 139 mmol/L (137-145); Total Protein 7.5 g/dL (6.3-8.2)
--- NOTE | 2023-03-17 12:37 | DI.CT.S_ITS ---
PROCEDURE: CT HEAD/BRAIN WO CON INDICATIONS: syncope TECHNIQUE: Noncontrast 4.5 mm thick angled axial sections acquired from the foramen magnum to the vertex, with coronal and sagittal reformats. For radiation dose reduction, the following was used: automated exposure control, adjustment of mA and/or kV according to patient size. COMPARISON: None. FINDINGS: Image quality: Excellent. CSF spaces: Basal cisterns are patent. No extra-axial fluid collections. Ventricles are normal in size and shape. Brain: No midline shift. No intracranial masses or hemorrhage. Donis-white matter interface is normal. Skull and face: Calvarium and visualized facial bones are intact, without suspicious lesions. Sinuses: Visualized sinuses and mastoids are clear. IMPRESSION: Normal CT of the brain Approved by: Jae Dotson M.D. on 03/17/2023 at 12:48
[2023-03-17 12:40] LABS: Lactate (Lactic Acid) 4.4 mmol/L (0.7-2.1)
[2023-03-17] MEDS: KETOROLAC 30 MG/ML VIAL 15 MG IV (12:43)
[2023-03-17] MEDS: SODIUM CHLORIDE 0.9% 712.14 ML IV (12:45)
[2023-03-17 12:48] LABS: Troponin I < 0.012 ng/mL (0.01-0.034)
[2023-03-17 12:53] LABS: Prolactin 46.1 ng/mL (3.7-17.9)
--- NOTE | 2023-03-17 13:00 | ED.SEIZURE ---
HPI - Seizure General Chief Complaint: Seizure Stated Complaint: syncope/BP irregular Time Seen by Provider: 03/17/23 12:08 Source: patient and family Mode of arrival: Ambulatory Limitations: no limitations History of Present Illness HPI Narrative: Patient is a healthy 22-year-old male who presents with syncopal episode. He reports that for the last month he is lost weight he is had daily diarrhea episodes 2-3 a day nonbloody liquid but sometimes formed. Feels pretty nauseous. He is lost some weight. Last night told his parents that he was not feeling very well around dinner time. This morning they came and checked his sugar and blood pressure. The report that his glucose was 101 and his blood pressure was 104/68. Patient reports that he does not like having his blood pressure taken and he does not like needles or having his glucose checked. After his parents took his blood pressure and his glucose he was getting anxious stood up thought he could walk it off support himself a cup of coffee immediately felt like he was dizzy lightheaded sat down. He then slumped forward and arms were brought into his chest and he was shaking. Dad went and caught his head to make sure he did not fall backwards off chair. This event lasted about 1 minute. He woke up and asked what happened. Not significantly confused. He generally does not feel well he feels pretty cold. He actually is hypothermic. Temperature 96.5?. He is also slightly bradycardic heart rate in the 40s to 50s. Blood pressure is stable. He does not have a headache. Sounds like he was a little bit confused when he woke up per dad. He has no numbness tingling or weakness. No abdominal pain. He denies any traveling. He denies any hematemesis or rectal bleeding. He denies any alcohol use or drug intake. Related Data Allergies Allergy/AdvReac Type Severity Reaction Status Date / Time No Known Drug Allergies Allergy Verified 11/12/19 10:34 Review of Systems Review of Systems ROS Unobtainable: All systems reviewed & are unremarkable except as noted in HPI and below Patient History Medical History COVID-19 No significant medical problems Social History Smoking Status: Current every day smoker Smoking Status: Current every day smoker tobacco type: e-cigarettes and vaping alcohol intake frequency: other Substance Use Type: marijuana Exam Initial Vital Signs Initial Vital Signs: Vital Signs Pulse Rate 71 03/17/23 12:11 Respiratory Rate 17 03/17/23 12:11 Blood Pressure 127/68 03/17/23 12:11 Pulse Oximetry 100 03/17/23 12:11 GENERAL: 22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 RESPIRATORY: Breath sounds equal bilaterally, no wheezes rales or rhonchi. ABDOMEN: Soft, nontender. Normoactive bowel sounds all 4 quadrants. No guarding or rebound. EXTREMITIES: Normal range of motion, no clubbing or edema. Neurovascularly intact NEUROLOGICAL: Alert and oriented x4.Normal gait and speech. Cranial nerves II through XII grossly intact. Good [id number], good ascn-jy-[id number], strength equal bilaterally, no dysarthria or aphasia, sensation in tact to soft touch bilaterally, no visual changes, no facial droop SKIN: Slightly pale cool no mottling Course Orders Ordered: ED Orders 03/17/23 12:13 XR chest 1V Stat Complete Blood Count AUTO DIFF Stat Comprehensive Metabolic Panel Stat D Dimer Stat ETOH [Ethanol (ETOH)] Stat Lactate (Lactic Acid) Stat Lipase Stat Magnesium Stat PTT Partial Thromboplastin Vikash Stat Procalcitonin Stat Prolactin Stat Prothrombin Time INR Stat TSH [Thyroid Stimulating Hormone] Stat Troponin & CK Cardiac Panel Stat 03/17/23 12:33 EKG-12 Lead Routine EKG-12 Lead Stat 03/17/23 12:37 CT head/brain wo con Stat 03/17/23 12:39 GI Panel (Film Array) Stat 03/17/23 12:40 Blood Culture Stat 03/17/23 12:50 Respiratory Panel (Film Array) Stat 03/17/23 14:39 Urine Drug Screen, Rapid Stat Discontinued Medications Sodium Chloride (Normal Saline 0.9%) 1,000 mls @ 1,000 mls/hr IV BOLUS ONE Stop: 03/17/23 13:22 Last Admin: 03/17/23 13:21 Dose: Not Given Documented By: NIMA Sodium Chloride (Normal Saline 0.9%) 2,136.42 mls @ 712.14 mls/hr 30 ml/kg infuse over 3 hr (2136.42 ml) IV NOW ONE Stop: 03/17/23 15:39 Last Infusion: 03/17/23 15:28 Dose: Infused Documented By: Admin: 03/17/23 12:45 Dose: 712.14 mls/hr Documented By: NIMA Ketorolac Tromethamine (Ketorolac 30 Mg/Ml Vial) 15 mg IV NOW ONE Stop: 03/17/23 12:24 Last Admin: 03/17/23 12:43 Dose: 15 mg Documented By: CANDE Vital Signs Vital signs: Vital Signs - 8 hr 03/17/23 12:11 03/17/23 12:11 03/17/23 12:12 Temperature Pulse Rate 71 70 Respiratory Rate 17 13 Blood Pressure 127/68 Pulse Oximetry 100 100 Oxygen Delivery Method 03/17/23 12:12 03/17/23 12:15 03/17/23 12:15 Temperature Pulse Rate 52 L Respiratory Rate 12 Blood Pressure 124/66 117/59 L Pulse Oximetry 100 Oxygen Delivery Method 03/17/23 12:23 03/17/23 12:26 03/17/23 12:26 Temperature Pulse Rate 59 L 50 L Respiratory Rate 18 21 Blood Pressure 124/66 116/60 Pulse Oximetry 100 100 Oxygen Delivery Method Room Air 03/17/23 12:30 03/17/23 12:31 03/17/23 12:31 Temperature Pulse Rate 54 L 54 L Respiratory Rate 25 H 18 Blood Pressure 118/78 Pulse Oximetry 100 100 Oxygen Delivery Method 03/17/23 12:43 03/17/23 12:43 03/17/23 13:00 Temperature Pulse Rate 69 73 Respiratory Rate 19 23 Blood Pressure 151/66 H Pulse Oximetry 100 99 Oxygen Delivery Method 03/17/23 13:02 03/17/23 13:02 03/17/23 13:18 Temperature 96.5 F L Pulse Rate 59 L Respiratory Rate 23 Blood Pressure 123/64 124/68 Pulse Oximetry 100 Oxygen Delivery Method 03/17/23 13:18 03/17/23 13:20 03/17/23 13:20 Temperature Pulse Rate 49 L 49 L Respiratory Rate 12 12 Blood Pressure 114/75 Pulse Oximetry 100 99 Oxygen Delivery Method 03/17/23 13:30 03/17/23 13:40 03/17/23 13:40 Temperature 97.6 F Pulse Rate 52 L 51 L Respiratory Rate 19 17 Blood Pressure 114/60 Pulse Oximetry 100 99 Oxygen Delivery Method 03/17/23 14:00 03/17/23 14:00 03/17/23 14:20 Temperature Pulse Rate 52 L Respiratory Rate 22 Blood Pressure 111/57 L 114/76 Pulse Oximetry 99 Oxygen Delivery Method 03/17/23 14:20 03/17/23 14:30 03/17/23 14:38 Temperature Pulse Rate 58 L 51 L Respiratory Rate 18 24 Blood Pressure 119/73 Pulse Oximetry 100 100 Oxygen Delivery Method 03/17/23 14:38 03/17/23 14:40 03/17/23 14:40 Temperature Pulse Rate 56 L 60 Respiratory Rate 18 13 Blood Pressure 125/74 Pulse Oximetry 100 100 Oxygen Delivery Method MDM - Seizure Lab Data 03/17/23 12:13 03/17/23 12:13 Labs: Lab Results 03/17/23 03/17/23 03/17/23 Range/Units 12:13 12:50 14:25 WBC 9.4 (4.5-11.0) X10^3/uL RBC 5.03 (4.5-5.9) X10^6/uL Hgb 14.7 (13.5-17.5) g/dL Hct 42.9 (41-53) % MCV 85.2 (80-100) fL MCH 29.2 (26-34) PG MCHC 34.3 (30-36) % RDW 13.1 (11.6-14.8) % Plt Count 224 (150-400) X10^3/uL Neut % (Auto) 50.9 (50-75) % Lymph % (Auto) 41.5 H (25-40) % [place] % (Auto) 5.8 (3-14) % Eos % (Auto) 1.3 L (2-4) % Baso % (Auto) 0.5 (0-2) % Neut # (Auto) 4800 (5322-9900) /uL Lymph # (Auto) 3900 (5211-1421) /uL [place] # (Auto) 500 (0-900) /uL Eos # (Auto) 100 (0-450) /uL Baso # (Auto) 0 (0-100) /uL PT 11.9 (10.1-12.7) SECONDS INR 1.0 (0.9-1.3) APTT 24 L (26-36) SECONDS D-Dimer 269 (<500) ng/ml Sodium 139 (137-145) mmol/L Potassium 3.3 L (3.4-5.1) mmol/L Chloride 106 (98-107) mmol/L Carbon Dioxide 21 L (22-32) mmol/L BUN 16 (9-20) mg/dL Creatinine 0.61 L (0.66-1.25) mg/dL Estimated GFR > 60 (>60) mL/min BUN/Creatinine Ratio 26.2 H (6-22) Glucose 164 H (70-100) mg/dL Lactate 4.4 H* 1.1 (0.7-2.1) mmol/L Calcium 9.6 (8.4-10.2) mg/dL Magnesium 1.9 (1.6-2.3) mg/dL Total Bilirubin 0.8 (0.2-1.3) mg/dL AST 24 (17-59) IU/L ALT 17 (<50) IU/L Alkaline Phosphatase 80 (38-126) U/L Total Creatine Kinase 102 (55-170) U/L Troponin I < 0.012 (0.01-0.034) ng/mL Total Protein 7.5 (6.3-8.2) g/dL Albumin 4.7 (3.5-5.0) g/dL Globulin 2.8 (1.7-4.1) g/dL Albumin/Globulin Ratio 1.7 (1.0-2.8) Lipase 89 (23-300) U/L Procalcitonin < 0.03 (<0.5) ng/mL TSH 0.534 (0.47-4.68) uIU/mL Prolactin 46.1 H (3.7-17.9) ng/mL U Opiates 300ng/mL cut (Negative) Ur Oxycodone Screen (Negative) Urine Methadone Screen (Negative) Ur Barbiturates Screen (Negative) U Tricyclic Antidepress (Negative) Ur Phencyclidine Scrn (Negative) Ur Amphetamines Screen (Negative) U Methamphetamines Scrn (Negative) Ur MDMA Scrn (Ecstasy) (Negative) U Benzodiazepines Scrn (Negative) Urine Cocaine Screen (Negative) U Marijuana (THC) Screen (Negative) Ethyl Alcohol < 10 ( - 10) mg/dL Chlamy pneumoniae PCR Not detected (Not Detect) Adenovirus (PCR) Not detected (Not Detect) B.parapertussis DNA PCR Not detected (Not Detecte) Coronavirus OC43 (PCR) Not detected (Not Detect) Coronavirus HKU1 (PCR) Not detected (Not Detect) Coronavirus 229E (PCR) Not detected (Not Detect) SARS-CoV-2 (PCR) Not detected (Not Detecte) Coronavirus NL63 (PCR) Not detected (Not Detect) Human Metapneumovir PCR Not detected (Not Detect) Influenza Type A (PCR) Not detected (Not Detect) Influenza Type B (PCR) Not detected (Not Detect) M. pneumoniae (PCR) Not detected (Not Detect) Parainfluenza 1 (PCR) Not detected (Not Detect) Parainfluenza 2 (PCR) Not detected (Not Detect) Parainfluenza 3 (PCR) Not detected (Not Detect) Parainfluenza 4 (PCR) Not detected (Not Detect) RSV (PCR) Not detected (Not Detect) Entero/Rhino (PCR) Detected H (Not Detect) 03/17/23 Range/Units 14:39 WBC (4.5-11.0) X10^3/uL RBC (4.5-5.9) X10^6/uL Hgb (13.5-17.5) g/dL Hct (41-53) % MCV (80-100) fL MCH (26-34) PG MCHC (30-36) % RDW (11.6-14.8) % Plt Count (150-400) X10^3/uL Neut % (Auto) (50-75) % Lymph % (Auto) (25-40) % [place] % (Auto) (3-14) % Eos % (Auto) (2-4) % Baso % (Auto) (0-2) % Neut # (Auto) (3475-8893) /uL Lymph # (Auto) (4424-7621) /uL [place] # (Auto) (0-900) /uL Eos # (Auto) (0-450) /uL Baso # (Auto) (0-100) /uL PT (10.1-12.7) SECONDS INR (0.9-1.3) APTT (26-36) SECONDS D-Dimer (<500) ng/ml Sodium (137-145) mmol/L Potassium (3.4-5.1) mmol/L Chloride (98-107) mmol/L Carbon Dioxide (22-32) mmol/L BUN (9-20) mg/dL Creatinine (0.66-1.25) mg/dL Estimated GFR (>60) mL/min BUN/Creatinine Ratio (6-22) Glucose (70-100) mg/dL Lactate (0.7-2.1) mmol/L Calcium (8.4-10.2) mg/dL Magnesium (1.6-2.3) mg/dL Total Bilirubin (0.2-1.3) mg/dL AST (17-59) IU/L ALT (<50) IU/L Alkaline Phosphatase (38-126) U/L Total Creatine Kinase (55-170) U/L Troponin I (0.01-0.034) ng/mL Total Protein (6.3-8.2) g/dL Albumin (3.5-5.0) g/dL Globulin (1.7-4.1) g/dL Albumin/Globulin Ratio (1.0-2.8) Lipase (23-300) U/L Procalcitonin (<0.5) ng/mL TSH (0.47-4.68) uIU/mL Prolactin (3.7-17.9) ng/mL U Opiates 300ng/mL cut Negative (Negative) Ur Oxycodone Screen Negative (Negative) Urine Methadone Screen Negative (Negative) Ur Barbiturates Screen Negative (Negative) U Tricyclic Antidepress Negative (Negative) Ur Phencyclidine Scrn Negative (Negative) Ur Amphetamines Screen Negative (Negative) U Methamphetamines Scrn Negative (Negative) Ur MDMA Scrn (Ecstasy) Negative (Negative) U Benzodiazepines Scrn Negative (Negative) Urine Cocaine Screen Negative (Negative) U Marijuana (THC) Screen Positive H (Negative) Ethyl Alcohol ( - 10) mg/dL Chlamy pneumoniae PCR (Not Detect) Adenovirus (PCR) (Not Detect) B.parapertussis DNA PCR (Not Detecte) Coronavirus OC43 (PCR) (Not Detect) Coronavirus HKU1 (PCR) (Not Detect) Coronavirus 229E (PCR) (Not Detect) SARS-CoV-2 (PCR) (Not Detecte) Coronavirus NL63 (PCR) (Not Detect) Human Metapneumovir PCR (Not Detect) Influenza Type A (PCR) (Not Detect) Influenza Type B (PCR) (Not Detect) M. pneumoniae (PCR) (Not Detect) Parainfluenza 1 (PCR) (Not Detect) Parainfluenza 2 (PCR) (Not Detect) Parainfluenza 3 (PCR) (Not Detect) Parainfluenza 4 (PCR) (Not Detect) RSV (PCR) (Not Detect) Entero/Rhino (PCR) (Not Detect) Point of Care Testing Glucose POC 130 Urine Dip Bedside Urine Glucose Negative Bedside Urine Bilirubin - Negative Bedside Urine Ketone - Negative Urine Specific [place] 1.010 Bedside Urine Occult Blood - Negative Bedside Urine pH 7.5 Bedside Urine Protein - Negative Bedside Urine Urobilinogen - Negative Bedside Urine Nitrite - Negative Bedside Urine Leukocytes - Negative Esterase Imaging Data CT scan - head: Radiologist's Impression: PROCEDURE: CT HEAD/BRAIN WO CON INDICATIONS: syncope TECHNIQUE: Noncontrast 4.5 mm thick angled axial sections acquired from the foramen magnum to the vertex, with coronal and sagittal reformats. For radiation dose reduction, the following was used: automated exposure control, adjustment of mA and/or kV according to patient size. COMPARISON: None. FINDINGS: Image quality: Excellent. CSF spaces: Basal cisterns are patent. No extra-axial fluid collections. Ventricles are normal in size and shape. Brain: No midline shift. No intracranial masses or hemorrhage. Donis-white matter interface is normal. Skull and face: Calvarium and visualized facial bones are intact, without suspicious lesions. Sinuses: Visualized sinuses and mastoids are clear. IMPRESSION: Normal CT of the brain Approved by: Jae Dotson M.D. on 03/17/2023 at 12:48 Chest x-ray: Radiologist's Impression: PROCEDURE: XR CHEST 1V INDICATIONS: chest pain TECHNIQUE: One view of the chest was acquired. COMPARISON: [facility], , XR CHEST 1V, 10/19/2019, 8:23. FINDINGS: Surgical changes and devices: None. Lungs and pleura: Lungs are clear. No pleural effusions or pneumothorax. Mediastinum: Mediastinal contours appear normal. Heart size is normal. Bones and chest wall: No suspicious bony lesions. Overlying soft tissues appear unremarkable. IMPRESSION: No acute cardiopulmonary findings Approved by: Jae Dotson M.D. on 03/17/2023 at 12:03 ECG Data Interpretation: EKG 1. Sinus bradycardia rate 47 OR interval 138 QRS 100 QTC 408 no AV tristin block no ST changes no prolonged QT. previous EKG from 2017 shows tachycardia with a heart rate of 106 EKG 2. Sinus rhythm rate 50 no AV tristin block QTC 404 MDM Narrative Medical decision making narrative: Patient 22-year-old male presents with seizure syncopal episode. Difficult to get an appropriate temperature nursing staff, attempted multiple different temperature sites. Ultimately rectal temperature showed 96.5 a little on the low end. He complains of being cold. He was on a monitor heart rate went as low as 39. No AV tristin block appreciated. He was awake alert and responsive at this time. Repeat EKG did not show any abnormalities. No prolonged QT Blood work reviewed no leukocytosis or anemia, potassium 3.3 carbon dioxide 21 creatinine 0.6 glucose 164, lactate elevated at 4.4. Troponin is also negative. Prolactin is elevated at 46.1 possible seizure. I spent a long time talking to patient and dad. Patient is really anxious about needles and blood pressure. He is positive for entero/rhinovirus. I suspect that he was not feeling well last night due to a virus and it really does sound like he vasovagal. He stood up was able to walk then felt very dizzy lightheaded and sat down passed out briefly. There was no significant postictal time. His heart rate continues to be on the lower end but he becomes much more awake and alert. Temperature improves he is feeling a lot better. He does work construction framing. He had a long discussion about possibility of seizure driving and high-risk. I will give him a work note he needs to be cleared by PCP and/or Neurology for full return to work. Discharge Plan Departure Patient Disposition: Home Clinical Impression: Vaso-vagal reaction, Acute upper respiratory infection Instructions: DI for Syncope in Adults (Fainting), DI for Viral Upper Respiratory Infection -- Adult Activity Restrictions/Additional Instructions: *You have been diagnosed with fainting episode, upper respiratory virus *What to do: At this time you can not work or drive until you have been cleared by primary care provider or neurologist However I do seem that you likely passed out from your blood pressure cuff and getting your sugar checks Increase fluid as tolerated *Continue to take medications as directed *Follow up with your primary care provider in 2-3 days or call [phone] Call tomorrow to schedule follow up appointment *Return to ER if you should have recurrent passing out shaking confusion or any new, worsening or concerning symptoms Referrals: Brayden Morales MD [Primary Care Provider] - Abdulaziz Quintero MD [Physician] - Ezra Sherwood DO [Physician] - Radha Martinez DO [Physician] - Suni Elder DO [Physician] - Stand Alone Forms: Patient Portal/API, Work Release Note
[2023-03-17 13:05] LABS: Ethanol (ETOH) < 10 mg/dL
[2023-03-17 13:07] LABS: Thyroid Stimulating Hormone 0.534 uIU/mL (0.47-4.68)
[2023-03-17 13:12] LABS: D Dimer 269 ng/ml (<500)
[2023-03-17 13:22] LABS: Procalcitonin < 0.03 ng/mL (<0.5)
[2023-03-17 14:06] LABS: Adenovirus Not Detected (Not Detect); B. parapertussis Not Detected (Not Detecte); Bordetella pertussis Not Detected (Not Detect); Chlamydophila pneumoniae Not Detected (Not Detect); Coronavirus 229E Not Detected (Not Detect); Coronavirus HKU1 Not Detected (Not Detect); Coronavirus NL 63 Not Detected (Not Detect); Coronavirus OC43 Not Detected (Not Detect); Human Metapneumovirus Not Detected (Not Detect); Human Rhinovirus/Enterovirus Detected (Not Detect); Influenza A Not Detected (Not Detect); Influenza B Not Detected (Not Detect); Mycoplasma pneumoniae Not Detected (Not Detect); Parainfluenza Virus 1 Not Detected (Not Detect); Parainfluenza Virus 2 Not Detected (Not Detect); Parainfluenza Virus 3 Not Detected (Not Detect); Parainfluenza Virus 4 Not Detected (Not Detect); Respiratory Syncytial Virus Not Detected (Not Detect); SARS- CoV-2 Not Detected (Not Detecte)
[2023-03-17 14:08] LABS: Reflexed Lactate in 2 Hours Y
[2023-03-17 14:40] LABS: Lactate 2HR (Lactic Acid Rflx) 1.1 mmol/L (0.7-2.1)
[2023-03-17 14:58] LABS: UR Morphine/Opiate cutoff 300 Negative (Negative); Ur Creatinine Normal (Normal); Ur Specific Gravity Normal (Normal); Urine Amphetamines Negative (Negative); Urine Barbiturates Negative (Negative); Urine Benzodiazepines Negative (Negative); Urine Cocaine Negative (Negative); Urine MDMA Negative (Negative); Urine Methadone Negative (Negative); Urine Methamphetamines Negative (Negative); Urine Oxycodone Negative (Negative); Urine Phencyclidine Negative (Negative); Urine Tetrahydrocannabinol Positive (Negative); Urine Tricyclic Antidepressant Negative (Negative); Urine pH Normal (Normal)
== END 2023-03-17 15:52 | disposition home or self-care (01) ==
PROVIDERS: Emergency Provider Emergency Medicine; PCP Student in an Organized Health Care Education/Training Program
DX: R55 Syncope and collapse (principal); J06.9 Acute upper respiratory infection, unspecified; R00.1 Bradycardia, unspecified; R07.9 Chest pain, unspecified; Z20.822 Contact with and (suspected) exposure to COVID-19
CPT/HCPCS: 36415; 70450; 71045; 80053; 80305; 80320; 81003; 82550; 83605; 83690; 83735; 84145; 84146; 84443; 84484; 85025; 85379; 85610; 85730; 87040; 87633; 93005; 93010; 96361; 96374; 99284; J1885